=== PATIENT | female | born 1955 | race Caucasian/White ===

== ENCOUNTER 2016-09-10 17:27 | Emergency (ER) | payer MEDICAID, OTHER ==
[~2016-09-10] VITALS: Ht 162.6 cm; Wt 51.5 kg
[~2016-09-10 17:27] MED LIST: BENA25TA4 PO; HERBAL SUPPLEMENT PO; LOVE1INJ SC; NORVASC PO; TRAZ100T2 PO; TRAZ50TA2 PO; ZOLOFT PO; no meds
[2016-09-10] MEDS ORDERED: CITA10TA5 (17:40)
[2016-09-10] MEDS ORDERED: TRAZ50TA4 (17:40)
[2016-09-10] MEDS ORDERED: BUPR150T3 (17:40)
[2016-09-10 18:16] LABS: INR 0.96
[2016-09-10 18:26] LABS: BASO % 0.6 % (0.0-1.0); EOS # 0.2 K/mm3 (0.0-0.50); EOS % 2.3 % (0.0-3.0); LARGE UNSTAINED CELL # 0.2 K/mm3 (0.0-0.4); LARGE UNSTAINED CELL % 2.5 % (0.0-4.0); LYMPH # 3.1 K/mm3 (1.5-4.5); LYMPH % 40.3 % (24.0-44.0); MEAN CORPUSCULAR HEMOGLOBIN 31.2 pg (27.0-33.0); MEAN CORPUSCULAR HGB CONC 34.9 g/dl (32.0-36.5); MEAN CORPUSCULAR VOLUME 89.3 fl (80.0-96.0); MONO # 0.4 K/mm3 (0.0-0.8); MONO % 6.2 % (0.0-5.0); NEUTROPHILS # 3.5 K/mm3 (1.8-7.7); NEUTROPHILS % 48.1 % (36.0-66.0); PLATELET COUNT, AUTOMATED 243 k/mm3 (150-450); RED CELL DISTRIBUTION WIDTH 12.6 % (11.5-14.5); WHITE BLOOD COUNT 7.2 K/mm3 (4.0-10.0)
[2016-09-10 18:36] LABS: ALBUMIN 4.4 GM/DL (3.2-5.2); ALBUMIN/GLOBULIN RATIO 1.38 (1.00-1.93); ALKALINE PHOSPHATASE 73 U/L (45-117); ALT/SGPT 25 U/L (12-78); ANION GAP 9 MEQ/L (8-16); AST/SGOT 20 U/L (15-37); BILIRUBIN,DIRECT < 0.1 MG/DL (0.0-0.2); BILIRUBIN,TOTAL 0.3 MG/DL (0.2-1.0); BLOOD UREA NITROGEN 7 MG/DL (7-18); CALCIUM LEVEL 9.3 MG/DL (8.5-10.1); CARBON DIOXIDE LEVEL 27 MEQ/L (21-32); CHLORIDE LEVEL 102 MEQ/L (98-107); CREATININE FOR GFR 0.76 MG/DL (0.55-1.02); FREE T4 1.08 NG/DL (0.76-1.46); GLOMERULAR FILTRATION RATE > 60.0 (>51); GLUCOSE, FASTING 94 MG/DL (70-105); MAGNESIUM LEVEL 2.1 MG/DL (1.8-2.4); POTASSIUM SERUM 3.4 MEQ/L (3.5-5.1); SODIUM LEVEL 138 MEQ/L (136-145); TOTAL PROTEIN 7.6 GM/DL (6.4-8.2)
--- NOTE | 2016-09-10 18:39 | REP ---
Clinical: Chest pain . Comparison: 07/25/2012 . Technique: PA and lateral. Findings: The mediastinum and cardiac silhouette are normal. The lung mullen are clear and without acute consolidation, effusion, or pneumothorax. The skeletal structures are intact and normal. Impression: 1. No acute cardiopulmonary process. Signed by Wolfgang Hoyt MD 09/10/2016 06:30 P
[2016-09-10 19:42] VITALS: BP 164/94
[2016-09-10] MEDS ORDERED: POTASSIUM CHLORIDE 10 MEQ SR TABLET PO ONE (19:45)
--- NOTE | 2016-09-11 07:34 | ECGEPIP ---
Stationary ECG Study [facility] - ED Test Date: 2016-09-10 Pat Name: KALIE JORGE Department: Room: - Gender: F [employer]: ct : 1955 Requested By: Pramod Angulo Order Number: [id number] Reading MD: Betzaida Lazaro Measurements Intervals [place] Rate: 89 P: 76 SD: 182 QRS: 69 QRSD: 74 T: 64 QT: 369 QTc: 450 Interpretive Statements SINUS RHYTHM ANTEROSEPTAL MYOCARDIAL INFARCTION, OF INDETERMINATE AGE NSTTW ABNORMALITY DECREASED RATE 07/14/12 Electronically Signed On 09-11-2016 7:34:11 EDT by Betzaida Lazaro
== END 2016-09-10 19:54 | disposition home or self-care (01) ==
LOC: M ED 17:27
DX: R00.2 Palpitations (principal); R50.9 Fever, unspecified; F32.9 Major depressive disorder, single episode, unspecified; F41.9 Anxiety disorder, unspecified; F17.210 Nicotine dependence, cigarettes, uncomplicated

== ENCOUNTER → 2018-05-31 | Outpatient (REF) | payer OTHER ==
[~2018-05-31] MED LIST changes: +BUPR150T3; +CITA10TA5; +TRAZ-160
[2018-05-31 17:12] LABS: BASO # 0.1 10^3/uL (0.0-0.2); BASO % 0.6 % (0.0-1.0); EOS # 0.1 10^3/uL (0.0-0.50); EOS % 1.5 % (0.0-3.0); HEMOGLOBIN 13.4 g/dl (12.0-15.5); LYMPH # 2.9 10^3/uL (1.5-4.5); LYMPH % 32.7 % (24.0-44.0); MEAN CORPUSCULAR HGB CONC 33.5 g/dl (32.0-36.5); MEAN CORPUSCULAR VOLUME 89.7 fl (80.0-96.0); MONO # 0.7 10^3/uL (0.0-0.8); MONO % 8.1 % (0.0-5.0); NEUTROPHILS # 5.1 10^3/uL (1.8-7.7); NEUTROPHILS % 56.9 % (36.0-66.0); PLATELET COUNT, AUTOMATED 243 10^3/uL (150-450); RED BLOOD COUNT 4.46 10^6/uL (4.00-5.40); WHITE BLOOD COUNT 8.9 10^3/uL (4.0-10.0)
[2018-05-31 17:36] LABS: HEMOGLOBIN A1c 5.1 %
[2018-05-31 17:46] LABS: ALBUMIN 4.5 GM/DL (3.2-5.2); ALT/SGPT 23 U/L (12-78); BILIRUBIN,TOTAL 0.3 MG/DL (0.2-1.0); BLOOD UREA NITROGEN 8 MG/DL (7-18); CALCIUM LEVEL 9.2 MG/DL (8.8-10.2); CARBON DIOXIDE LEVEL 28 MEQ/L (21-32); CHLORIDE LEVEL 103 MEQ/L (98-107); CHOLESTEROL LEVEL 238 MG/DL (<200); CHOLESTEROL RISK RATIO 2.833 (<5); CPK CREATINE PHOSPHOKINASE 39 U/L (26-192); CREATININE FOR GFR 0.71 MG/DL (0.55-1.30); FREE T4 1.05 NG/DL (0.76-1.46); GLOMERULAR FILTRATION RATE > 60.0 (>45); GLUCOSE, FASTING 81 MG/DL (70-100); HDL CHOLESTEROL 84 MG/DL (>40); LDL CHOLESTEROL 136 MG/DL (<100); MB/CK RELATIVE INDEX 3.33 (< OR =4); NON-HDL-C 154 MG/DL; POTASSIUM SERUM 3.8 MEQ/L (3.5-5.1); SODIUM LEVEL 139 MEQ/L (136-145); TOTAL PROTEIN 7.2 GM/DL (6.4-8.2); TRIGLYCERIDES LEVEL 89 MG/DL (<150); TROPONIN I < 0.02 NG/ML (< 0.10)
[2018-05-31 17:47] LABS: PTH INTACT 41.3 PG/ML (18.5-88.0); TOTAL 25(OH) VITAMIN D 49.8 NG/ML (30.0-100.0)
== END ==
LOC: M SFHCPLAZ 15:36
PROVIDERS: ATTEND Nurse Practitioner Family
DX: Z13.228 Encounter for screening for other metabolic disorders (principal); R07.89 Other chest pain; R00.2 Palpitations; E56.9 Vitamin deficiency, unspecified

== ENCOUNTER → 2018-06-07 | Outpatient (REF) | payer OTHER ==
[2018-06-07 16:54] LABS: BASO # 0.1 10^3/uL (0.0-0.2); BASO % 0.6 % (0.0-1.0); EOS # 0.1 10^3/uL (0.0-0.50); HEMATOCRIT 40.6 % (36.0-47.0); HEMOGLOBIN 13.6 g/dl (12.0-15.5); LYMPH # 2.8 10^3/uL (1.5-4.5); MEAN CORPUSCULAR HGB CONC 33.5 g/dl (32.0-36.5); MEAN CORPUSCULAR VOLUME 89.6 fl (80.0-96.0); MONO # 0.7 10^3/uL (0.0-0.8); MONO % 7.8 % (0.0-5.0); NEUTROPHILS # 5.1 10^3/uL (1.8-7.7); NEUTROPHILS % 58.3 % (36.0-66.0); PLATELET COUNT, AUTOMATED 247 10^3/uL (150-450); RED BLOOD COUNT 4.53 10^6/uL (4.00-5.40); WHITE BLOOD COUNT 8.7 10^3/uL (4.0-10.0)
[2018-06-07 18:17] LABS: ALBUMIN 4.5 GM/DL (3.2-5.2); ALT/SGPT 22 U/L (12-78); BILIRUBIN,TOTAL 0.3 MG/DL (0.2-1.0); BLOOD UREA NITROGEN 10 MG/DL (7-18); CALCIUM LEVEL 9.4 MG/DL (8.8-10.2); CARBON DIOXIDE LEVEL 27 MEQ/L (21-32); CHLORIDE LEVEL 103 MEQ/L (98-107); CREATININE FOR GFR 0.74 MG/DL (0.55-1.30); FREE T4 1.04 NG/DL (0.76-1.46); GLOMERULAR FILTRATION RATE > 60.0 (>45); GLUCOSE, FASTING 85 MG/DL (70-100); POTASSIUM SERUM 3.8 MEQ/L (3.5-5.1); SODIUM LEVEL 139 MEQ/L (136-145); TOTAL PROTEIN 7.3 GM/DL (6.4-8.2)
[2018-06-07 18:18] LABS: FOLATE > 24.0 NG/ML; VITAMIN B12 LEVEL 1236 PG/ML
[2018-06-11 16:40] LABS: VITAMIN E(ALPHA TOCOPHEROL) 18.2 mg/L (9.0-29.0); VITAMIN E(GAMMA TOCOPHEROL) 1.3 mg/L (0.5-4.9)
[2018-06-12 16:01] LABS: VITAMIN B1 LEVEL WHOLE BLOOD 170.3 nmol/L (66.5-200.0); VITAMIN B6,PYRIDOXAL PHOSPHATE 15.7 ug/L (2.0-32.8)
== END ==
LOC: M LABDRAWP 13:57
PROVIDERS: ATTEND Psychiatry & Neurology Neurology
DX: R25.1 Tremor, unspecified (principal); E07.9 Disorder of thyroid, unspecified

== ENCOUNTER → 2019-08-17 | Outpatient (REF) | payer OTHER ==
[~2019-08-17] MED LIST changes: -TRAZ-160; +TRAZ-252
[2019-08-17 15:41] LABS: HEMATOCRIT 39.2 % (36.0-47.0); HEMOGLOBIN 13.2 g/dl (12.0-15.5); MEAN CORPUSCULAR HEMOGLOBIN 29.9 pg (27.0-33.0); MEAN CORPUSCULAR HGB CONC 33.7 g/dl (32.0-36.5); MEAN CORPUSCULAR VOLUME 88.7 fl (80.0-96.0); PLATELET COUNT, AUTOMATED 245 10^3/uL (150-450); RED BLOOD COUNT 4.42 10^6/uL (4.00-5.40); WHITE BLOOD COUNT 13.7 10^3/uL (4.0-10.0)
[2019-08-17 15:50] LABS: ALBUMIN 4.6 GM/DL (3.2-5.2); ALT/SGPT 22 U/L (12-78); BILIRUBIN,TOTAL 0.4 MG/DL (0.2-1.0); BLOOD UREA NITROGEN 9 MG/DL (7-18); CALCIUM LEVEL 9.5 MG/DL (8.8-10.2); CARBON DIOXIDE LEVEL 29 MEQ/L (21-32); CHLORIDE LEVEL 104 MEQ/L (98-107); CHOLESTEROL LEVEL 249 MG/DL (<200); CHOLESTEROL RISK RATIO 2.929 (<5); CREATININE FOR GFR 0.73 MG/DL (0.55-1.30); GLOMERULAR FILTRATION RATE > 60.0 (>45); GLUCOSE, FASTING 90 MG/DL (70-100); HDL CHOLESTEROL 85 MG/DL (>40); LDL CHOLESTEROL 145 MG/DL (<100); NON-HDL-C 164 MG/DL; SODIUM LEVEL 139 MEQ/L (136-145); TOTAL PROTEIN 7.3 GM/DL (6.4-8.2); TRIGLYCERIDES LEVEL 93 MG/DL (<150)
== END ==
LOC: M PLALAB 13:01
PROVIDERS: ATTEND Physician Assistant
DX: F17.200 Nicotine dependence, unspecified, uncomplicated (principal); R50.81 Fever presenting with conditions classified elsewhere; E78.5 Hyperlipidemia, unspecified

== ENCOUNTER → 2020-02-20 | Outpatient (REF) | payer OTHER ==
[2020-02-20 16:30] LABS: ALBUMIN 4.2 GM/DL (3.2-5.2); ALT/SGPT 28 U/L (12-78); BILIRUBIN,TOTAL 0.4 MG/DL (0.2-1.0); BLOOD UREA NITROGEN 9 MG/DL (7-18); CALCIUM LEVEL 9.7 MG/DL (8.8-10.2); CARBON DIOXIDE LEVEL 31 MEQ/L (21-32); CHLORIDE LEVEL 107 MEQ/L (98-107); CHOLESTEROL LEVEL 274 MG/DL (<200); CHOLESTEROL RISK RATIO 3.341 (<5); CREATININE FOR GFR 0.73 MG/DL (0.55-1.30); FREE T4 1.05 NG/DL (0.76-1.46); GLOMERULAR FILTRATION RATE > 60.0 (>45); GLUCOSE, FASTING 91 MG/DL (70-100); HDL CHOLESTEROL 82 MG/DL (>40); LDL CHOLESTEROL 174 MG/DL (<100); NON-HDL-C 192 MG/DL; POTASSIUM SERUM 4.7 MEQ/L (3.5-5.1); SODIUM LEVEL 141 MEQ/L (136-145); TOTAL PROTEIN 6.9 GM/DL (6.4-8.2); TRIGLYCERIDES LEVEL 91 MG/DL (<150)
== END ==
LOC: M SFHCPLAZ 14:04
PROVIDERS: ATTEND Nurse Practitioner Family
DX: E78.5 Hyperlipidemia, unspecified (principal); F32.9 Major depressive disorder, single episode, unspecified

== ENCOUNTER → 2020-08-21 | Outpatient (REF) | payer OTHER, MEDICARE ==
[~2020-08-21] MED LIST changes: +BUPR150T12; -BUPR150T3
[2020-08-21 18:27] LABS: ALBUMIN 4.3 GM/DL (3.2-5.2); ALT/SGPT 29 U/L (12-78); BILIRUBIN,TOTAL 0.4 MG/DL (0.2-1.0); BLOOD UREA NITROGEN 10 MG/DL (7-18); CALCIUM LEVEL 9.5 MG/DL (8.8-10.2); CARBON DIOXIDE LEVEL 27 MEQ/L (21-32); CHLORIDE LEVEL 101 MEQ/L (98-107); CHOLESTEROL LEVEL 257 MG/DL (<200); CHOLESTEROL RISK RATIO 2.954 (<5); CREATININE FOR GFR 0.69 MG/DL (0.55-1.30); GLOMERULAR FILTRATION RATE > 60.0 (>45); GLUCOSE, FASTING 94 MG/DL (70-100); HDL CHOLESTEROL 87 MG/DL (>40); LDL CHOLESTEROL 152 MG/DL (<100); NON-HDL-C 170 MG/DL; POTASSIUM SERUM 3.7 MEQ/L (3.5-5.1); SODIUM LEVEL 138 MEQ/L (136-145); TOTAL PROTEIN 7.3 GM/DL (6.4-8.2); TRIGLYCERIDES LEVEL 91 MG/DL (<150)
== END ==
LOC: M SFHCPLAZ 15:24
PROVIDERS: ATTEND Nurse Practitioner Family
DX: E78.5 Hyperlipidemia, unspecified (principal)

== ENCOUNTER → 2021-09-01 | Outpatient (CLI) | payer MEDICARE, OTHER ==
[~2021-09-01] MED LIST changes: -CITA10TA5; +CITA10TA7
[2021-09-01 17:23] LABS: ALBUMIN 3.5 GM/DL (3.2-5.2); ALT/SGPT 18 U/L (12-78); BILIRUBIN,TOTAL 0.3 MG/DL (0.2-1.0); BLOOD UREA NITROGEN 7 MG/DL (7-18); CALCIUM LEVEL 9.3 MG/DL (8.8-10.2); CARBON DIOXIDE LEVEL 29 MEQ/L (21-32); CHLORIDE LEVEL 105 MEQ/L (98-107); CHOLESTEROL LEVEL 144 MG/DL (<200); CREATININE FOR GFR 0.61 MG/DL (0.55-1.30); GLOMERULAR FILTRATION RATE > 60.0 (>45); GLUCOSE, FASTING 86 MG/DL (70-100); HDL CHOLESTEROL 75 MG/DL (>40); LDL CHOLESTEROL 47 MG/DL (<100); NON-HDL-C 69 MG/DL; POTASSIUM SERUM 3.6 MEQ/L (3.5-5.1); SODIUM LEVEL 141 MEQ/L (136-145); TOTAL PROTEIN 6.6 GM/DL (6.4-8.2); TRIGLYCERIDES LEVEL 112 MG/DL (<150)
== END ==
LOC: M PLALAB 15:16
PROVIDERS: ATTEND Nurse Practitioner Family
DX: E78.5 Hyperlipidemia, unspecified (principal)

== ENCOUNTER → 2022-08-17 | Outpatient (CLI) | payer MEDICARE, MEDICAID ==
[2022-08-17 17:27] LABS: BASO % 0.3 % (0.0-1.0); EOS # 0.1 10^3/uL (0.0-0.5); EOS % 0.5 % (0.0-3.0); HEMOGLOBIN 10.9 g/dl (12.0-15.5); LYMPH # 2.6 10^3/uL (1.5-5.0); LYMPH % 21.7 % (24.0-44.0); MEAN CORPUSCULAR HGB CONC 31.1 g/dl (32.0-36.5); MEAN CORPUSCULAR VOLUME 80.3 fl (80.0-96.0); MONO # 1.1 10^3/uL (0.0-0.8); MONO % 8.8 % (2.0-8.0); NEUTROPHILS # 8.3 10^3/uL (1.5-8.5); NEUTROPHILS % 68.5 % (36.0-66.0); PLATELET COUNT, AUTOMATED 387 10^3/uL (150-450); RED BLOOD COUNT 4.36 10^6/uL (4.00-5.40); WHITE BLOOD COUNT 12.2 10^3/uL (4.0-10.0)
[2022-08-17 17:51] LABS: ALBUMIN 3.3 G/DL (3.2-5.2); ALKALINE PHOSPHATASE 139 U/L (46-116); ALT/SGPT 14 U/L (7.0-40); AST/SGOT 19 U/L (<34); BILIRUBIN,TOTAL 0.4 MG/DL (0.3-1.2); BLOOD UREA NITROGEN 6 MG/DL (9-23); CALCIUM LEVEL 9.9 MG/DL (8.3-10.6); CARBON DIOXIDE LEVEL 29 MMOL/L (20-31); CHLORIDE LEVEL 103 MMOL/L (98-107); CHOLESTEROL LEVEL 128 MG/DL (<200); CHOLESTEROL RISK RATIO 2.04 (<5); CREATININE FOR GFR 0.66 MG/DL (0.55-1.30); GLOMERULAR FILTRATION RATE > 60.0 (>45); GLUCOSE, FASTING 86 MG/DL (74-106); HDL CHOLESTEROL 62.7 MG/DL (>40); LDL CHOLESTEROL 51.1 MG/DL (<100); NON-HDL-C 65.3 MG/DL; POTASSIUM SERUM 4.2 MMOL/L (3.5-5.1); SODIUM LEVEL 141 MMOL/L (136-145); TOTAL PROTEIN 6.7 G/DL (5.7-8.2); TRIGLYCERIDES LEVEL 71 MG/DL (<150)
[2022-08-17 17:54] LABS: THYROID STIMULATING HORMONE 1.577 uIU/ML (0.55-4.78)
== END ==
LOC: M PLALAB 15:26
PROVIDERS: ATTEND Nurse Practitioner Family
DX: E78.5 Hyperlipidemia, unspecified (principal); R63.4 Abnormal weight loss; E55.9 Vitamin D deficiency, unspecified

== ENCOUNTER → 2022-08-28 | Outpatient (CLI) | payer MEDICARE, MEDICAID | LOC: M WHC 13:53 | PROVIDERS: ATTEND Nurse Practitioner Family | DX: Z13.820 Encounter for screening for osteoporosis (principal) ==

== ENCOUNTER → 2022-09-09 | Outpatient (CLI) | payer MEDICARE, MEDICAID ==
[2022-09-09 16:38] LABS: ERYTHROCYTE SEDIMENTATION RATE 74 mm/hr (0-30)
== END ==
LOC: M PLALAB 14:04
PROVIDERS: ATTEND Nurse Practitioner Family
DX: R91.8 Other nonspecific abnormal finding of lung field (principal); R63.4 Abnormal weight loss; D72.829 Elevated white blood cell count, unspecified

== ENCOUNTER → 2022-09-11 | Outpatient (CLI) | payer MEDICARE, MEDICAID ==
[~2022-09-11] MED LIST changes: +ISOVUE-370 76% 100ML VIAL ONE
== END ==
LOC: M PLAIMG 07:44
PROVIDERS: ATTEND Nurse Practitioner Family
DX: J43.2 Centrilobular emphysema (principal); R59.0 Localized enlarged lymph nodes; R91.1 Solitary pulmonary nodule
CPT/HCPCS: 71260; Q9967

== ENCOUNTER → 2022-09-17 | Outpatient (CLI) | payer MEDICARE, MEDICAID ==
[~2022-09-17] MED LIST changes: -ISOVUE-370 76% 100ML VIAL ONE
== END ==
LOC: M RAD 11:23
PROVIDERS: ATTEND Nurse Practitioner Family
DX: R22.42 Localized swelling, mass and lump, left lower limb (principal)

== ENCOUNTER → 2022-09-28 | Outpatient (CLI) | payer MEDICARE, MEDICAID | LOC: M PLARAD 15:18 | PROVIDERS: ATTEND Nurse Practitioner Family | DX: R91.8 Other nonspecific abnormal finding of lung field (principal); M79.89 Other specified soft tissue disorders | CPT/HCPCS: 78815; A9552 ==

== ENCOUNTER → 2022-09-29 | Outpatient (CLI) | payer MEDICARE, MEDICAID | LOC: M EKG 14:48 | DX: Z01.810 Encounter for preprocedural cardiovascular examination (principal); Z79.899 Other long term (current) drug therapy ==

== ENCOUNTER → 2022-11-09 | Outpatient (CLI) | payer MEDICARE, MEDICAID | LOC: M PAL 10:19 | PROVIDERS: ATTEND Nurse Practitioner Adult Health | DX: C34.12 Malignant neoplasm of upper lobe, left bronchus or lung (principal); C79.31 Secondary malignant neoplasm of brain; R59.0 Localized enlarged lymph nodes; Z51.5 Encounter for palliative care; F32.9 Major depressive disorder, single episode, unspecified; F41.1 Generalized anxiety disorder; Z66 Do not resuscitate; F17.210 Nicotine dependence, cigarettes, uncomplicated; R91.1 Solitary pulmonary nodule; Z79.899 Other long term (current) drug therapy; Z78.0 Asymptomatic menopausal state ==

== ENCOUNTER → 2022-12-22 | Outpatient (CLI) | payer MEDICARE, MEDICAID ==
[~2022-12-22] MED LIST changes: +LEVE250T5 PO; +ZOLO100T PO
== END ==
LOC: M ONCR 14:41
PROVIDERS: ATTEND General Practice
DX: C79.2 Secondary malignant neoplasm of skin (principal); C79.31 Secondary malignant neoplasm of brain; R91.1 Solitary pulmonary nodule; Z71.2 Person consulting for explanation of examination or test findings; F17.210 Nicotine dependence, cigarettes, uncomplicated; Z79.899 Other long term (current) drug therapy
CPT/HCPCS: G0463 ×2

== ENCOUNTER → 2022-12-22 | Outpatient (CLI) | payer MEDICARE, MEDICAID ==
[2022-12-22 13:50] VITALS: BP 131/75; O2SAT 99
== END ==
LOC: M PAL 13:34
PROVIDERS: ATTEND Nurse Practitioner Adult Health
DX: C79.2 Secondary malignant neoplasm of skin (principal); C34.31 Malignant neoplasm of lower lobe, right bronchus or lung; C79.31 Secondary malignant neoplasm of brain; R91.1 Solitary pulmonary nodule; R59.0 Localized enlarged lymph nodes; F32.9 Major depressive disorder, single episode, unspecified; F41.1 Generalized anxiety disorder; F17.210 Nicotine dependence, cigarettes, uncomplicated; Z51.5 Encounter for palliative care; Z66 Do not resuscitate; Z79.899 Other long term (current) drug therapy; Z78.0 Asymptomatic menopausal state

== ENCOUNTER 2022-12-25 08:58 | Outpatient (RCR) | payer MEDICARE, MEDICAID | END 2023-01-12 | LOC: M ONCR 08:58 | PROVIDERS: ATTEND General Practice | DX: Z51.0 Encounter for antineoplastic radiation therapy (principal); C79.2 Secondary malignant neoplasm of skin ==